=== PATIENT | female | born 1950 | race Caucasian/White ===

== ENCOUNTER 2024-05-11 12:34 | Outpatient (CLI) | payer MEDICARE, BC ==
[~2024-05-11 12:34] MED LIST: DEXL60CA3 PO
== END 2024-05-11 23:59 | disposition home or self-care (01) ==
LOC: MRI 12:34
PROVIDERS: ATTEND Physician Assistant Surgical
DX: S83.001A Unspecified subluxation of right patella, initial encounter (principal); M25.561 Pain in right knee; M17.11 Unilateral primary osteoarthritis, right knee; M71.21 Synovial cyst of popliteal space [Baker], right knee; R60.0 Localized edema; X58.XXXA Exposure to other specified factors, initial encounter; Y93.9 Activity, unspecified; Y92.89 Other specified places as the place of occurrence of the external cause; Y99.8 Other external cause status; M22.41 Chondromalacia patellae, right knee
CPT/HCPCS: 73721